=== PATIENT | female | born 1950 | race Two or more races ===

== ENCOUNTER 2018-09-16 12:34 | Emergency (ER) | payer OTHER ==
[~2018-09-16] VITALS: Ht 149.9 cm; Wt 39.0 kg
--- NOTE | 2018-09-16 13:18 | NUR ---
PATIENT BIBRA39/PD FROM HOME, PATIENT AWAKE, ALERT AND ORIENTED 2-3. NO ACUTE DISTRESS. NO CHANGES IN LOC NOTED. PATIENT AGIGATED, HARD OF HEARING. AWAITING PSYCH EVAL.
[2018-09-16 13:21] LABS: BASOPHILS # (AUTO) 0.1 /CMM (0.0-0.2); BASOPHILS % (AUTO) 0.8 % (0.0-2.0); EOSINOPHILS % (AUTO) 0.1 % (0.0-6.0); HEMATOCRIT 47 % (33-45); HEMOGLOBIN 16.5 g/dL (11.5-14.8); LYMPHOCYTES # (AUTO) 1.2 /CMM (0.8-4.8); LYMPHOCYTES % (AUTO) 13.2 % (20.0-44.0); MEAN CORPUSCULAR HGB CONC 35 g/dl (31.0-36.0); MEAN CORPUSCULAR VOLUME 93 fL (82-100); MONOCYTES # (AUTO) 0.5 /CMM (0.1-1.30); MONOCYTES % (AUTO) 5.3 % (2.0-12.0); NEUTROPHILS # (AUTO) 7.6 /CMM (1.8-8.9); NEUTROPHILS % (AUTO) 80.6 % (43.0-81.0); PLATELET COUNT (AUTO) 248 /CMM (150-450); RED BLOOD CELL COUNT(AUTO) 5.06 MIL/uL (4.0-5.2); WHITE BLOOD COUNT (AUTO) 9.4 K/uL (4.3-11.0)
[2018-09-16 13:43] LABS: ALANINE AMINOTRANSFERASE 24 U/L (12-78); ALBUMIN 3.5 g/dL (3.4-5.0); ALCOHOL, BLOOD < 3 mg/dL (0-0); ALKALINE PHOSPHATASE 78 U/L (46-116); ASPARTATE AMINOTRANSFERASE 34 U/L (15-37); BILIRUBIN,DIRECT 0.1 mg/dL (0.0-0.2); BILIRUBIN,TOTAL 0.6 mg/dL (0.2-1.0); CALCIUM, SERUM 8.5 mg/dL (8.5-10.1); CARBON DIOXIDE 25 mmol/L (21-32); CHLORIDE 108 mmol/L (98-107); CREATININE 0.7 mg/dL (0.6-1.3); GLUCOSE 99 mg/dL (74-106); POTASSIUM 3.1 mmol/L (3.5-5.1); SODIUM SERUM 143 mmol/L (136-145); TOTAL PROTEIN, SERUM 6.4 g/dL (6.4-8.2)
[2018-09-16 13:47] LABS: ACETAMINOPHEN 0 ug/ml (10-30); SALICYLATE 0.8 mg/dL (2.8-20.0)
[2018-09-16 14:02] LABS: UREA NITROGEN, BLOOD 12 mg/dL (7-18)
--- NOTE | 2018-09-16 14:42 | NUR ---
URINE COLLECTED AND SENT TO LAB
[2018-09-16 14:52] LABS: APPEARANCE,URINE Clear (CLEAR); BILIRUBIN,URINE Negative (NEGATIVE); BLOOD, URINE Small Ery/uL (NEGATIVE); COLOR,URINE Yellow (YELLOW); KETONES,URINE 40 (NEGATIVE); LEUKOCYTE ESTERASE ,URINE Negative (NEGATIVE); NITRITE, URINE Negative (NEGATIVE); PROTEIN,URINE 30 mg/dl (NEGATIVE); UGLUCOSE Negative (NEGATIVE); UROBILINOGEN,URINE 0.2 EU/dL (0.2)
[2018-09-16] MEDS ORDERED: POTASSIUM CHLORIDE 20 MEQ TAB.PRT.SR PO ONE ×2 (15:00→15:05)
[2018-09-16 15:08] LABS: BACTERIA,URINE Rare /HPF (None Seen); SQUAMOUS EPITHELIAL CELL,UR Rare /HPF (None Seen); WBC,URINE 0-2 /HPF (0-3)
--- NOTE | 2018-09-16 15:42 | NUR ---
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
--- NOTE | 2018-09-16 16:09 | NUR ---
SPOKE WITH LANA (TEL: [phone]), FROM [facility] AT [place] [place]. ASKED TO GIVE HER A CALL ONCE PATIENT IS EVALUATED OR AFTER A HOLD IS WRITTEN FOR CONTINUATION OF CARE
--- NOTE | 2018-09-16 18:45 | NUR ---
PATIENT RESTING INSIDE ROOM. NO ACUTE DISTRESS. AMBULATORY. DENIES ANY PAIN OR DISCOMFORT. WILL CONTINUE TO MONITOR
--- NOTE | 2018-09-16 18:53 | NUR ---
PER [place] [employer]ED [employer]INDERS WILL SEARCH FOR BED AND CALL BACK WITH UPDATE
--- NOTE | 2018-09-16 19:39 | NUR ---
REPORT GIVEN TO MINI GONZALEZ FOR [facility]
--- NOTE | 2018-09-16 21:34 | NUR ---
PER [place]. PT CASE UNDER REVIEW AT LOCATED WITHIN [facility]. WILL CALL BACK ONCE BED AVAILABLE.
--- NOTE | 2018-09-16 23:03 | NUR ---
CALLED [facility] MOLD CHECKER. INFORMED ABOUT NEW POTASSIUM LEVEL. [phone]
--- NOTE | 2018-09-17 01:31 | NUR ---
PER [facility]. NEW TRANSFER INFORMATION WILL BE PROVIDED BY [place] SHORTLY. AWAITING CALLBACK.
--- NOTE | 2018-09-17 01:46 | NUR ---
[facility] ACCEPTING. [phone]. AMBULANCE ETA [id number]
--- NOTE | 2018-09-17 02:07 | NUR ---
REPORT GIVEN TO CARISSA GONZALEZ.
[2018-09-17 02:47] VITALS: BP 132/86
== END 2018-09-17 02:52 | disposition short-term general hospital (02) ==
LOC: ER 12:34
DX: F41.9 Anxiety disorder, unspecified (principal); F32.9 Major depressive disorder, single episode, unspecified; J44.9 Chronic obstructive pulmonary disease, unspecified; I44.4 Left anterior fascicular block; E87.6 Hypokalemia; Z88.2 Allergy status to sulfonamides; Z88.1 Allergy status to other antibiotic agents; Z88.6 Allergy status to analgesic agent; Z91.012 Allergy to eggs; Z04.6 Encounter for general psychiatric examination, requested by authority
CPT/HCPCS: 36415; 80048; 80076; 80307; 81001; 84132; 85025; 87081; 93005 ×2; 99285; G0480; 80305; 81000-TC